=== PATIENT | male | born 1945 ===

== ENCOUNTER → 2016-09-21 | Outpatient (CLI) | payer MEDICARE, BC ==
[~2016-09-21] MED LIST: 8 HOUR650 MG PO; ASPIRIN325 MG PO; AUGMENTIN 875-1 EACH PO; CALCIUM 600 +1 EAC6 PO; COUMADIN ** IA5 MG PO; CPAP INH; DAILY VALUE1 EACH PO; FISH OIL 1,2001 EACH PO; GARLIC1 EAC1 PO; IRON65 PO; L-LYSINE500 MG PO; LIPITOR10 MG PO; NEURONTIN300 MG PO; NEURONTIN600 MG PO; NIACIN CONTROL500 MG PO; NORVASC5 MG PO; PROBIOTIC1 EAC1 PO; PROSCAR5 MG PO; SAW PALMETTO450 MG PO; TOPROL XL25 MG PO; VITAMIN B-121000 MCG PO; WARFARIN SODIUM5 MG PO
--- NOTE | ~2016-09-21 | ESTC ---
Cardiac Perfusion Imaging Demographics Patient Name SIM Rodriguez Gender Male Patient Number [id number] Race Visit Number [id number] [place] [id number] Room Number Accession Number [id number] Height Date of 1945 Weight Age 70 year(s) BSA Referring Physician Samuel Martin MD BMI Alexander Cisse Interpreting Samuel Martin MD Date of study 09/21/2016 Physician Supervising /STAR Martin NM Technologist Dejan Ga APRN Ordering Physician Samuel Martin MD Stress phlebotomy services technician Stress ECG Reading Giorgi Martin Nurse Zahira Liao RN Physician MARYLOU The procedure was explained in detail to the patient. Risks, complications and alternative treatments were reviewed. Written consent was obtained. Medications Reviewed with Patient prior to Procedure. Procedure Procedure Type: Nuclear Stress Test:Pharmacological, Cardiolite Stress Test Procedure Start time: 09/21/2016 00:00 Indications: Chest discomfort. Risk Factors The patient risk factors include:prior PCI on 07/07/2016;hypercholesterolemia, family history of premature CAD, dyslipidemia and prior [place] . Conclusions Summary Cardiolite SPECT images demonstrates a fixed defect involving the inferoseptal regions with extension into the apical region. There is a rim of reversibility noted. Normal TID ratio Gated images demonstrate mild to moderate hypokinesis involving the above mentioned areas with overall preserved left ventricular systolic function. LVEF is 56% Stress Protocols Resting ECG RSR with T wave inversion Lead III, AVF. Flat T wave in V5 and V6 Resting HR:65 bpm Resting BP:132/67 mmHg Pre-stress physical exam: Patient assessed by Lashawn Rand prior to testing. Stress Protocol:Pharmacologic Peak HR:79 bpm HR response: Appropriate Peak BP:115/55 mmHg BP response: Appropriate Predicted HR: 148 bpm HR/BP product:9085 % of predicted HR: 53 Reason for termination:Infusion complete ECG Findings SR without new ST or T wave changes. Arrhythmias None Symptoms Shortness of breath. Stress Interpretation Appropriate hemodynamic response to Lexiscan. No significant ST-T wave changes with Lexiscan. ECG portion is negative for ischemia by diagnostic criteria. Stress supervision and interpretation provided by Francisca Rand APRN . Imaging Results Applied corrections - Motion correction applied High risk findings Summed scores - Summed stress score: 13 - Summed rest score: 12 - Summed difference score: 1 Stress ejection Ejection fraction:56 % EDV :143 ml ESV :63 ml Stroke volume :80 ml LV mass :181 gr Imaging Protocols Rest Stress Isotope:Tc99m Sestamibi IV Isotope: Tc99m Sestamibi IV Isotope dose:14.1 mCi Isotope dose:41.7 mCi Date:09/21/2016 07:16 Date:09/21/2016 09:10 Technique: SPECT Technique: Gated Supine SPECT Supine Scan Time:30 minutes post injection Scan Time:45-60 minutes post injection Procedure Medications - Regadenoson (Lexiscan) 0.4 mg IV over 10-15 sec. I.V. 0.4 mg. Medical History Admission Data Admission date: 09/21/2016 Admission Time: 06:47 Hospital Status: Outpatient. Signatures dtt: Mario Baker (cardio) dtd: 09/21/16 0000 Physician Self Edit
== END | disposition disaster alternative care site (69) ==
LOC: GRAD 06:47
DX: I25.10 Atherosclerotic heart disease of native coronary artery without angina pectoris (principal)
CPT/HCPCS: A9500; J0280; J2785

== ENCOUNTER 2016-10-05 07:44 | Outpatient (CLI) | payer MEDICARE, BC ==
[~2016-10-05] VITALS: Ht 177.8 cm; Wt 93.5 kg
--- NOTE | ~2016-10-05 | CATH ---
Cardiac Diagnostic Report Demographics Patient Name SIM Rodriguez Gender Male Date of 1945 Age 70 year(s) Patient Number [id number] Date of Study 10/05/2016 Visit Number [id number] Room Number G[address] [place] [id number] Ht 177.8 cm Wt 93.5 kg Referring Alexander Cisse Primary Physician Physician Performing Samuel Martin MD Secondary Physician Physician Diagnostic Samuel Martin MD Assisting Physician Physician Interventional Physician Admissions Specialist Physician Findings and Conclusions Diagnostic Findings and Conclusion Two vessel CAD Patent stents LAD PVC's Diagnostic Recommendations Medical Therapy. Procedure Description The patient was brought to the diagnostic cardiac catheterization-EP laboratory in the fasting, non-sedated state. Informed consent was obtained in the written and verbal form after the risks and benefits were explained. The patient had no further questions and agreed to proceed. The planned puncture-incision site(s) were shaved and prepped with ChloraPrep and draped in the usual sterile manner. Conscious sedation, supplemental oxygen, and pain control medications were delivered by a registered nurse under physician guidance. Surface ECG rhythm, blood pressure measurement, and pulse oximetry were monitored throughout the procedure. Arterial access. The access site was infiltrated with lidocaine. The vessel was entered with the Seldinger technique. A sheath was advanced into the vessel and used for catheter placement. Selective left coronary angiography. A catheter was advanced into the left coronary vessel ostium under Fluoroscopic guidance. Contrast was injected by hand. Images were obtained in multiple projections. Selective right coronary angiography. A catheter was advanced into the right coronary vessel ostium under fluoroscopic guidance. Contrast was injected by hand. Images were obtained in multiple projections. Left heart catheterization with ventriculography. A catheter was advanced across the aortic valve to the left ventricle under fluoroscopic guidance. Resting hemodynamics were obtained. With the catheter at the left ventricular apex, contrast was injected. Images were obtained in GARRY projections. Post-ventriculography LV pressure was obtained. The catheter was gradually withdrawn into the aorta with continuous pressure recording. Arterial artery hemostasis was achieved. The patient was transferred to a regular nursing floor via cart accompanied by a nurse. The patient left the laboratory in stable condition. Diagnostic Cath Status: Elective Procedure Procedure Type Diagnostic procedure:Angiography:, Coronary Angios w/[facility] Indications: Abnormal Stress Test, Arm pain and Dyspnea with exertion. The procedure was explained in detail to the patient. Risks, complications and alternative treatments were reviewed. Written consent was obtained. Medications Reviewed with Patient prior to Procedure. Angiographic Findings Dominance: Left Cardiac Arteries and Lesion Findings LMCA: Normal (0% Stenosis).Large caliber vessel. LAD: Normal (0% Stenosis).The LAD is a medium caliber vessel. The 1st Diag is a small caliber vessel. The 1st Diag appears normal. The 2nd Diag is a small caliber vessel. The 2nd Diag appears normal.There is a previous stent on Mid LAD Mid subsection showing wide patency. There is a previous stent on Mid LAD Mid subsection showing wide patency. LCx: Abnormal.LCx large caliber vessel. The 1st ob Edita is a small caliber vessel. The 1st ob Edita appears normal. The 2nd ob Edita is a small caliber vessel. The 2nd ob Edita appears normal. AV Groove mild plaque. The L PDA is a medium caliber vessel. The L PDA appears normal. The L PL is a medium caliber vessel. The L PL appears normal. RCA: Normal (0% Stenosis).The RCA is a small caliber vessel. Coronary Tree Procedure Data Procedure Date Date: 10/05/2016Start: 10:42 AMEnd: 11:13 AM Entry Locations - Retrograde Percutaneous access was performed through the Right Femoral artery (Primary location). A 6 Fr sheath was inserted. Hemostasis was successfully obtained using Perclose ProGlide (Faustin). Closure Comments: jarod henriquez. Procedure Medications Order and Administration + + + +-------+ !Time !Medication !Dosage !Route ! + + + +-------+ !10/05/2016 10:40 AM !Versed !1 mg !I.V. ! + + + +-------+ !10/05/2016 10:41 AM !Fentanyl !25 mcg !I.V. ! + + + +-------+ !10/05/2016 10:45 AM !Oxygen !2 l/min !NC ! + + + +-------+ !10/05/2016 10:59 AM !Fentanyl !25 mcg !I.V. ! + + + +-------+ Devices Used - A6 Fr. BS JL 4 Diag. Catheterwas used for:Left coronary angiography. - A6 Fr. BS JR 4 Diag. Catheterwas used for:Right coronary angiography. - A6 Fr. BS Angled Pigtail Diag. Catheterwas used for:LV Pressures. Contrast Material - Isovue [id number] ml Fluoroscopy Time: Diagnostic: 3:36 minutes. Total: 3:36 minutes. Fluoroscopy Dose: Diagnostic: 935 mGy. Total: 935 mGy. Estimated Blood Loss: 5 ml. Medical History Performed Procedures and Imaging Results - Stress testing with SPECT MPIwas performed on 09/21/2016. Results were: Positive. Risk/Extent of ischemia was: Intermediate risk. Allergies - No known allergies. Risk Factors The patient risk factors include:prior PCI on 03/19/2013;hypertension, family history of premature CAD, last creatinine: 1.2 mg/dl, creatinine clearance: 73.59 ml/min, dyslipidemia, prior heart failure and prior [place] . Admission Data Admission Date: 10/05/2016 Admission Time: 07:44 AM Admit Source: Other Insurance Payors: Medicare. Admission Medications + +------+------+ + + + + !Medication !Dosage!Times !Last !Last !Administered !Comments ! ! ! !Per !Delivery !Delivery ! ! ! ! ! !Day !Date !Time ! ! ! + +------+------+ + + + + !Aspirin ! ! ! ! !Yes ! ! !(any) ! ! ! ! ! ! ! + +------+------+ + + + + !Beta ! ! ! ! !Yes ! ! !Steve ! ! ! ! ! ! ! !(any) ! ! ! ! ! ! ! + +------+------+ + + + + !Non-Statin ! ! ! ! !Yes ! ! !(any) ! ! ! ! ! ! ! + +------+------+ + + + + !Statin ! ! ! ! !Yes ! ! !(any) ! ! ! ! ! ! ! + +------+------+ + + + + Clinical Evaluation Leading to Procedure - There were no CAD presentation symptoms. - There were no anginal symptoms. Anti-anginal medications were prescribed during the past two weeks. The medications are: Beta Blockers and Ca channel Blockers. VA LV function assessed as:Abnormal. Ejection Fraction - 09/21/2016 - Method: Radionucleotide. EF%: 56. - 10/05/2016 - Method: LV gram. EF%: 40. LVA Segment Contractility 1 - Normal 3 - Mild 5 - Severe 7 - Dyskinesis hypokinesis hypokinesis 2 - 4 - Moderate 6 - Akinesis 8 - Aneurysm Hypokinesis hypokinesis Hemodynamics Condition: Rest Estimated: Heart Rate: 57 bpm Pressures (mmHg) +-----+ + !Site !Pressure ! +-----+ + !AO !109/47 (84) ! +-----+ + !LV !142/4 ,21 ! +-----+ + !LV !144/4 ,22 ! +-----+ + !LV !105/8 ,9 ! +-----+ + !AO !133/68 (92) ! +-----+ + !LV !140/3 ,17 ! +-----+ + Valve Gradients and Areas + +---------+---------+---------+ +---------+ + !Valve !Peak !Mean !Area !Index !Flow !Source ! + +---------+---------+---------+ +---------+ + !Aortic !0 !0 ! ! ! ! ! + +---------+---------+---------+ +---------+ + !Aortic !0 !0 ! ! ! ! ! + +---------+---------+---------+ +---------+ + Shunts Oxygen Values O2 Capacity 206.72 Discharge Data Discharge Date: 10/05/2016 Hospital Status: Outpatient Signatures dtt: Mario Baker (cardio) dtd: 10/05/16 1042 Physician Self Edit
[2016-10-05 09:12] LABS: INR - (THERAPEUTIC) 1.27 (0.92-1.07); PROTIME 13.4 SECONDS (9.8-11.4)
== END 2016-10-05 14:37 | disposition disaster alternative care site (69) ==
LOC: GPOC 07:44 → GPCU 07:44 → GPOC 08:00
PROVIDERS: Internal Medicine Interventional Cardiology
DX: R94.39 Abnormal result of other cardiovascular function study (principal)
CPT/HCPCS: C1760; J0583; J1644; J2250; J3010; J7030; J7060

== ENCOUNTER → 2016-10-25 | Outpatient (CLI) | payer MEDICARE, BC ==
[2016-10-25 16:24] LABS: ALBUMIN 3.8 gm/dL (3.5-5.0); ANION GAP 11.1 (10.0-19.0); CALCIUM 8.6 mg/dL (8.5-10.5); CREATININE 1.2 mg/dL (0.6-1.3); MAGNESIUM 2.2 mg/dL (1.8-2.6); PHOSPHORUS 2.8 mg/dL (2.5-4.9); POTASSIUM 4.1 mMol/L (3.7-5.1)
== END | disposition disaster alternative care site (69) ==
LOC: LCNC 15:56
PROVIDERS: Internal Medicine Interventional Cardiology
DX: I49.3 Ventricular premature depolarization (principal)